=== PATIENT | female | born 1965 | race Asian ===

== ENCOUNTER → 2020-06-15 13:00 | Outpatient (CLI) | payer OTHER, SELFPAY ==
--- NOTE | 2020-06-15 | DI.RAD.S_ITS ---
PROCEDURE: FL BARIUM SWALLOW INDICATIONS: Dysphagia, unspecified COMPARISON: None. FINDINGS: Function: There is normal esophageal peristalsis. No elicited gastroesophageal reflux. A small degree of gastroesophageal reflux was incidentally noted at 1 point during the examination. Morphology: Air-contrast images demonstrate normal mucosal morphology. Single contrast views show no esophageal strictures, extrinsic mass effects, or diverticula. Limited images of the stomach demonstrate normal appearance. IMPRESSION: Mild gastroesophageal reflux at 1 point during the examination, no evidence of esophageal dysmotility, scarring, esophagitis or mass lesion. No hiatal hernia is present. Dictated by: Channing Calle M.D. on 06/15/2020 at 14:51 Approved by: Channing Calle M.D. on 06/15/2020 at 14:53
== END ==
PROVIDERS: PCP Family Medicine; Referring Provider Internal Medicine; Visit Provider Internal Medicine
DX: R13.10 Dysphagia, unspecified (principal); R10.9 Unspecified abdominal pain; K21.9 Gastro-esophageal reflux disease without esophagitis
CPT/HCPCS: 74220

== ENCOUNTER → 2020-07-17 13:56 | Outpatient (CLI) | payer OTHER, SELFPAY ==
[2020-07-18 20:42] LABS: COVID19 Sendout Not Detected (Not Detect)
== END ==
PROVIDERS: PCP Family Medicine; Visit Provider Nurse Practitioner
DX: Z11.59 Encounter for screening for other viral diseases (principal)
CPT/HCPCS: 87635

== ENCOUNTER 2020-07-20 11:53 | Day surgery (SDC) | payer OTHER, SELFPAY ==
[2020-07-20] VITALS (9 sets, daily range): BP systolic 96–111; BP diastolic 61–70; PULSE 51–69; RESP 15–22; TEMP 36.2–36.7; O2SAT 97–99; BMI 21.9
--- NOTE | 2020-07-20 | PATH_ITS ---
[facility] Accession Number: [id number] . 01 Material submitted: . gastrointestinal site - GASTRIC ANTRUM . 02 Diagnosis: Stomach, Antrum, Biopsy: Antral mucosa with no diagnostic abnormality. Negative for intestinal metaplasia. Negative for Helicobacter by immunohistochemistry. Negative for dysplasia and malignancy. MRV 07/25/2020 1404 Local . 02 Electronically signed: . Venus Johnson MD, Pathologist NPI- [id number] . 01 Gross description: . GASTRIC ANTRUM: Received in formalin are 2 fragment(s) of verma, soft tissue measuring 0.4 x 0.3 x 0.3 cm to 0.3 x 0.2 x 0.2 cm submitted entirely in 1 cassette(s) /QBJ 07/21/2020 1007 Local . 02 Microscopic: . An immunohistochemical stain was performed to evaluate for Helicobacter organisms and is negative. The control stain showed appropriate reactivity. . * This test was developed and its performance characteristics determined by [facility]. It has not been cleared or approved by the U.S. Food and Drug Administration. The FDA has determined that such clearance or approval is not necessary. This test is used for clinical purposes. It should not be regarded as investigational or for research. . 02 Pathologist provided ICD-10: R10.9 . 02 CPT . 215498, L52251 Performed at: 01 [facility] [address] [id number] MD Chris Martinez MD Phone: [phone] Performed at: 02 [facility] [id number] [place], [place] [id number] MD Venus Johnson MD Phone: [phone]
--- NOTE | 2020-07-20 09:43 | PM.HP.1 ---
History of Present Illness History of Present Illness Date Patient Seen: 07/20/20 Chief complaint: EGD W/POSS BX Narrative: 55-year-old female seen in our office on 06/21/2020 due to epigastric pain and globus sensation here for further evaluation. She has a history of gastric ulcer in the past Patient History Medical History (Updated 07/20/20 @ 11:38 by Isa Hercules RN) Abdominal bloating (Acute) Abnormal findings in stool (Acute) Blood in stool (Acute) Constipation (Acute) Epigastric pain (Acute) Frequent sinus infections (Acute) Globus sensation (Acute) Headache (Acute) Heartburn (Acute) Helicobacter pylori (H. pylori) (Acute ~2011) HPV (human papilloma virus) infection (Acute) Hx of peptic ulcer (Acute) Rhinorrhea (Acute) Vitamin D deficiency (Acute) Surgical History (Updated 07/20/20 @ 11:30 by Isa Hercules, RN) History of colonoscopy (Acute ~2015) History of esophagogastroduodenoscopy (EGD) (Acute ~2013) Meds Home Medications and Allergies Home Medications Medication Instructions Recorded Confirmed Type Lactobacill 46-B.animal-inulin 100 mg PO DAILY 07/20/20 07/20/20 History [Probiotic-10 (with inulin)] Vitamin D3 1 tab PO DAILY 07/20/20 07/20/20 History conjugated estrogens [Premarin] 0.625 mg VAGINAL 2XW 07/20/20 07/20/20 History fexofenadine [Enedina Allergy] 180 mg PO DAILY PRN 07/20/20 07/20/20 History fluticasone propionate [Flonase 1 spray INTRANASAL DAILY 07/20/20 07/20/20 History Allergy Relief] omeprazole 10 mg PO DAILY 07/20/20 07/20/20 History turmeric root extract 500 mg PO DAILY 07/20/20 07/20/20 History vitamin A31-mvlko acid 1 tab PO DAILY 07/20/20 07/20/20 History vitamin E 180 unit PO DAILY 07/20/20 07/20/20 History Allergies Allergy/AdvReac Type Severity Reaction Status Date / Time Sulfa (Sulfonamide Allergy Unknown Verified 07/20/20 12:23 Antibiotics) Exam Narrative Exam Narrative: General: Patient is well developed, not in apparent distress Cardiovascular: Regular rate and rhythm, no murmurs, rubs, or gallops; no evidence of edema; no palpable abdominal aortic aneurysm Gastrointestinal: Normoactive bowel sounds, soft, nontender, nondistended, no rebound tenderness, no hepatosplenomegaly, no evidence of hernia Assessment & Plan Assessment & Plan narrative: 55-year-old female here for further evaluation of upper GI symptoms including globus sensation, epigastric pain, and bloating Regarding the procedure(s), the risks and potential complications, benefits, and alternatives (including not doing the procedure) were discussed with the patient. The risks include but are not limited to bleeding, splenic injury, infection, perforation which may require surgical intervention, missed lesions, and adverse reactions to sedative medicines. After a question and answer period, the patient agreed to proceed with the procedure(s) and gives informed consent.
[2020-07-20] MEDS: SODIUM CHLORIDE 0.9% 1,000 ML 70 ML IV (12:22)
--- NOTE | 2020-07-20 12:35 | PM.OP.ENDO ---
Operative Date/Time/Diagnoses Date of procedure: 07/20/20 Procedure Notes Procedure in detail: Surgeon: Donte Plascencia MD Procedure: Esophagogastroduodenoscopy with biopsies Preoperative diagnosis: Epigastric pain, globus sensation Postoperative diagnosis: Essentially normal EGD; biopsies taken for H pylori Medications: Conscious sedation using 5 mg IV of Midazolam and 100 mcg IV of Fentanyl Preanesthesia Assessment An H and P was performed/updated and the Px?s ASA class is 1. The procedure was discussed in detail with the patient. The potential risks and complications including infection, bleeding, missed lesions, perforation, need for surgery in case of perforation, prolonged hospital stay, and were explained. A brief question and answer period was allotted and once all questions were answered, informed consent was obtained. The patient was brought back to the procedure room and placed on standard monitoring. The patient?s vital signs were monitored continuously throughout the entire procedure. Prior to starting, a timeout was performed to confirm the patient?s identity, allergies, medications, and procedure. Procedure in detail The patient was placed in left lateral decubitus position and a bite block was inserted. The tip of the upper endoscope was placed into the mouth and advanced without difficulty under direct visualization into the esophagus. Esophagus: Z-line at 35 cm with no mucosal abnormalities seen in the entire esophagus Stomach: Normal-appearing mucosa throughout the entire stomach; biopsies done in the body and antrum to check for H pylori. Minimal bleeding with biopsies Duodenum: Normal visualized duodenal mucosa up to 2nd portion of the duodenum; mild deformity at duodenal sweep possibly due to prior history of ulcers The patient tolerated the procedure well and will be brought back to the recovery area to be discharged once criteria are met. The total physician intraservice time was 10 minutes. Complications There were no complications and estimated blood loss was minimal. Recommendations: Resume previous diet Continue outPx medications Follow up pathology results Call our office ([facility] [place] [facility]) to schedule follow-up with Dr. Hayes to follow up on your symptoms and review biopsy results An emergency contact number was given to the patient for any complications related to the procedure
[2020-07-20] MEDS: fentaNYL 250 MCG/5 ML INJ IV (12:38)
[2020-07-20] MEDS: MIDAZOLAM 5 MG/5 ML VIAL IV (12:38)
--- NOTE | 2020-07-20 13:23 | SUR.PHASEI ---
report to roxy daniel. Pt transferred to pacu 2 in stable condition with no c/o denies pain or nausea and taking po fluids well
== END 2020-07-20 13:36 | disposition home or self-care (01) ==
PROVIDERS: PCP Family Medicine; Referring Provider Internal Medicine Gastroenterology; Visit Provider Internal Medicine Gastroenterology
PROC: 0DJ08ZZ Inspection of Upper Intestinal Tract, Via Natural or Artificial Opening Endoscopic (ICD-10-PCS; CPT 43235; principal; 2020-07-20 13:00)
DX: R10.13 Epigastric pain (principal); Z87.11 Personal history of peptic ulcer disease
CPT/HCPCS: 43239; J2250; J3010

== ENCOUNTER → 2020-08-19 07:30 | Outpatient (CLI) | payer OTHER, SELFPAY ==
--- NOTE | 2020-08-19 | DI.NM.S_ITS ---
PROCEDURE: NM HIDA WITH CCK PHARMACEUTICAL: 5.5 mCi Tc-99m mebrofenin IV; 1.0 mcg CCK IV. INDICATIONS: Gastritis, unspecified, without bleeding TECHNIQUE: Following intravenous administration of Tc-99m mebrofenin, sequential anterior abdominal images were obtained. To evaluate the contractile response of the gallbladder in response to Cholecystokinin (CCK), sincalide (0.02 ?g/kg) was administered by slow intravenous infusion approximately 60 minutes after the administration of the radiopharmaceutical. Sequential imaging was continued for 30 minutes after the start of CCK infusion. Gallbladder ejection fraction was calculated. COMPARISON: None. FINDINGS: Biliary scan: There is normal tracer uptake and excretion by the liver. There is normal visualization of the intrahepatic ducts, common bile duct, and gallbladder. There is normal tracer transit into the duodenum. CCK stimulation: There is normal contractile response of the gallbladder to CCK infusion. The calculated gallbladder ejection fraction is 48%; normal values are above 35%. It has been shown that any patient abdominal pain after CCK administration is related to the rate of CCK injection, rather than to any underlying gallbladder disease (Clinical Nuclear Medicine 2012; 37: 63-70. Journal of Nuclear Medicine 2014; 55: 1-9). IMPRESSION: Normal hepatobiliary uptake and scan. Normal gallbladder ejection fraction. Dictated by: Thomas Arita M.D. on 08/19/2020 at 9:49 Approved by: Thomas Arita M.D. on 08/19/2020 at 9:50
== END ==
PROVIDERS: PCP Family Medicine; Referring Provider Student in an Organized Health Care Education/Training Program; Visit Provider Student in an Organized Health Care Education/Training Program
DX: K29.70 Gastritis, unspecified, without bleeding (principal); R10.13 Epigastric pain
CPT/HCPCS: 78227; A9537; J2805

== ENCOUNTER → 2020-10-08 14:02 | Outpatient (CLI) | payer OTHER, SELFPAY ==
--- NOTE | 2020-10-08 | DI.MG.S_ITS ---
BILATERAL DIGITAL SCREENING MAMMOGRAM 3D/2D WITH CAD WITH AUGMENTATION: 10/08/2020 CLINICAL: Routine screening. Comparison is made to exams dated: 08/30/2016 mammogram, 09/02/2018 mammogram, and 10/06/2019 mammogram - [facility]. The tissue of both breasts is heterogeneously dense. This may lower the sensitivity of mammography. Current study was also evaluated with a Computer Aided Detection (CAD) system. Bilateral breast implants are present. No significant masses, calcifications, or other findings are seen in either breast. There has been no significant interval change. IMPRESSION: NEGATIVE There is no mammographic evidence of malignancy. A 1 year screening mammogram is recommended. This exam was interpreted at Station ID: [id number]. NOTE: For mammograms, a report in lay terms will be sent to the patient. Approximately 15% of breast malignancies will not be visualized mammographically. In the management of a palpable breast mass, a negative mammogram must not discourage biopsy of a clinically suspicious lesion. Electronically Signed By: Dawson faulkner/jin:10/10/2020 08:00:21 letter sent: Normal Exam ACR BI-RADS Category 1: Negative [id number]
== END ==
PROVIDERS: PCP Family Medicine; Referring Provider Family Medicine; Visit Provider Family Medicine
DX: Z12.31 Encounter for screening mammogram for malignant neoplasm of breast (principal)
CPT/HCPCS: 77063; 77067